=== PATIENT | male | born 1975 | race Caucasian/White ===

== ENCOUNTER 2019-07-22 19:12 | Emergency (ER) | payer BC, OTHER ==
--- NOTE | 2019-07-22 19:24 | EDM.PDOC ---
ED HPI GENERAL MEDICAL PROBLEM - General Chief Complaint: Allergic Reaction Stated Complaint: anaphylactic reaction Time Seen by Provider: 07/22/19 19:19 Source of Information: Reports: Patient History Limitations: Reports: No Limitations - History of Present Illness INITIAL COMMENTS - FREE TEXT/NARRATIVE: Patient came to ER with suspected anaphylaxis that started around an hour prior to presentation. He recalls forehead itching first. Later some hives. Then some throat tightness. No tongue swelling. No eye swelling. No history of allergic reaction in past. No other acute changes reported. Notes that he ate some shrimp and crayfish around 3pm. Says he has only had a few shrimp his entire life and rarely is exposed to them. Also notes that he had a handful of peanuts but says he eats those regularly and without incident. No other new/acute exposures identified by patient. - Related Data Allergies Allergy/AdvReac Type Severity Reaction Status Date / Time shellfish derived Allergy Airway Verified 07/22/19 19:14 Tightness Home Meds: Home Meds Ezetimibe 1 tab PO DAILY 07/22/19 [History] Fenofibrate 1 tab PO DAILY 07/22/19 [History] Multivit-Min/Folic/Vit K/Lycop [Men's Multivitamin Tablet] 1 tab PO DAILY [History] Omeprazole 40 mg PO DAILY 07/22/19 [History] Past Medical History Cardiovascular History: Reports: High Cholesterol Gastrointestinal History: Reports: GERD Endocrine/Metabolic History: Reports: Obesity/BMI 30+ Social & Family History - Family History Family Medical History: Noncontributory - Tobacco Use Smoking Status *Q: Never Smoker - Caffeine Use Caffeine Use: Reports: Soda - Alcohol Use Alcohol Use History: Yes Alcohol Use Frequency: Daily (often has a beer or two but not daily) - Recreational Drug Use Recreational Drug Use: No Drug Use in Last 12 Months: No ED ROS ALLERGIC REACTION - Review of Systems Review Of Systems: See Below Constitutional: Reports: No Symptoms HEENT: Reports: Throat Swelling (mild). Denies: Rhinitis, Sinus Problem, Throat Pain, Vision Change Respiratory: Reports: Other (some chest tightness/mild wheezing) Cardiovascular: Reports: No Symptoms GI/Abdominal: Reports: No Symptoms : Reports: No Symptoms Musculoskeletal: Reports: No Symptoms Skin: Reports: Urticaria Neurological: Reports: No Symptoms ED EXAM GENERAL NO PERIP PULSE - Physical Exam Exam: See Below Exam Limited By: No Limitations General Appearance: Alert, WD/WN, Anxious Eye Exam: Bilateral Eye: EOMI, PERRL Ears: Normal External Exam, Normal Canal, Hearing Grossly Normal Nose: No: Nasal Deformity, Nasal Swelling, Nasal Drainage, Clear Rhinorrhea Throat/Mouth: Normal Lips, Normal Oropharynx, Normal Voice, No Airway Compromise Head: Atraumatic, Normocephalic Neck: Supple, Non-Tender, Full Range of Motion Respiratory/Chest: No Accessory Muscle Use, Wheezing (mild), Other (initially mild retractions noted that improved rapidly after Epi given). No: Respiratory Distress, Crackles, Rales, Rhonchi Cardiovascular: Regular Rate, Rhythm, No Murmur GI/Abdominal: Normal Bowel Sounds, Soft, Non-Tender, No Distention (Male) Exam: Deferred Rectal (Males) Exam: Deferred Back Exam: Normal Inspection Extremities: Normal Inspection, Normal Capillary Refill Neurological: Alert, Oriented, CN II-XII Intact, Normal Cognition, Normal Gait, No Motor/Sensory Deficits Psychiatric: Normal Affect, Normal Mood Skin Exam: Warm, Dry, Other (urticaria trunk/neck/legs) Course - Vital Signs Last Recorded V/S: Last Vital Signs Temp 36.6 C 07/22/19 20:05 Pulse 93 07/22/19 20:05 Resp 18 07/22/19 20:05 BP 115/67 07/22/19 20:05 Pulse Ox 100 07/22/19 20:05 - Orders/Labs/Meds Orders: Active Orders 24 hr Category Date Time Status Sodium Chloride 0.9% [Saline Flush] Med 07/22/19 19:29 Active 10 ml FLUSH ASDIRECTED PRN Saline Lock Insert [OM.PC] Stat Oth 07/22/19 19:29 Ordered Medication Orders Sodium Chloride (Saline Flush) 10 ml FLUSH ASDIRECTED PRN PRN Reason: Keep Vein Open Last Admin: 07/22/19 19:43 Dose: 10 ml Admin: 07/22/19 19:42 Dose: 10 ml Meds: Medications Generic Name Dose Route Start Last Admin Trade Name Freq PRN Reason Stop Dose Admin Sodium Chloride 10 ml 07/22/19 19:29 07/22/19 19:43 Saline Flush FLUSH 10 ml ASDIRECTED PRN Administration Keep Vein Open Discontinued Medications Generic Name Dose Route Start Last Admin Trade Name Cory PRN Reason Stop Dose Admin Diphenhydramine HCl 50 mg 07/22/19 19:29 07/22/19 19:42 Benadryl IVPUSH 07/22/19 19:30 50 mg ONETIME ONE Administration Epinephrine HCl 0.3 mg 07/22/19 19:29 07/22/19 19:12 Adrenalin IM 07/22/19 19:30 0.3 mg ONETIME ONE Administration Methylprednisolone Sodium Succinate 125 mg 07/22/19 19:28 07/22/19 19:40 Solu-Medrol IVPUSH 07/22/19 19:29 125 mg ONETIME ONE Administration - Re-Assessments/Exams Free Text/Narrative Re-Assessment/Exam: 07/22/19 19:32 Patient received IM Epi shortly after arrival. IV placed and was given SoluMedrol 125mg and Benadryl 50mg. Observed. Noted improvement in throat/ breathing within 10 min. Itching from hives stopped within 15 min. Hives improving. Vital signs improved/stable. Patient feels much better. Patient will be observed a full hour from time of medication administration. Plan will be to discharge patient at 2000 if he continues to feel improved. Extensive precautions reviewed with patient. Recommend carrying Benadryl in vehicle for PRN future use. He should discuss if carrying an EpiPen would be helpful with his primary provider. He was also warned that something else could have triggered the reaction and should be open other possible trigger and be vigilant. Avoidance of shellfish in future prudent. Warned of potential IV contrast cross reaction in future if he does react to shellfish. Departure - Departure Time of Disposition: 20:10 Disposition: Home, Self-Care 01 Condition: Good Clinical Impression: Anaphylactic reaction Qualifiers: Encounter type: initial encounter Qualified Code(s): T78.2XXA - Anaphylactic shock, unspecified, initial encounter - Discharge Information *PRESCRIPTION DRUG MONITORING PROGRAM REVIEWED*: Not Applicable *COPY OF PRESCRIPTION DRUG MONITORING REPORT IN PATIENT PABLO: Not Applicable Instructions: Anaphylactic Reaction, Adult Forms: ED Department Discharge Additional Instructions: Continue taking 2 tabs of Benadryl every 6 hours. That would be 1am, tomorrow at 7am, and tomorrow at 1pm. If rash has resolved by then you can discontinue the Benadryl. Watch for any recurrence of symptoms as we discussed. If rash or tightness of throat/lungs returns we need to see you again. Call us if you have any questions. If this is due to shellfish, just know that if you need to have IV contrast down the road they will ask you extra questions about your allergy/make them aware that you had this reaction. Sepsis Event Note - Focused Exam Vital Signs: Vital Signs Temp Pulse Resp BP Pulse Ox 07/22/19 20:05 36.6 C 93 18 115/67 100 07/22/19 19:45 94 18 116/74 99 07/22/19 19:30 94 20 108/69 99 07/22/19 19:20 99 22 H 114/80 96 07/22/19 19:12 36.2 C 98 26 H 113/82 95 Date Exam was Performed: 07/22/19 Time Exam was Performed: 21:07 - My Orders Last 24 Hours: My Active Orders 07/22/19 19:29 Sodium Chloride 0.9% [Saline Flush] 10 ml FLUSH ASDIRECTED PRN Saline Lock Insert [OM.PC] Stat - Assessment/Plan Last 24 Hours: My Active Orders 07/22/19 19:29 Sodium Chloride 0.9% [Saline Flush] 10 ml FLUSH ASDIRECTED PRN Saline Lock Insert [OM.PC] Stat
[2019-07-22] MEDS ORDERED: methylPREDNISolone Sodium Succinate 125 MG/2 ML SDV IVPUSH ONE (19:28)
[2019-07-22] MEDS ORDERED: EPINEPHrine 1 MG/1 ML Amp IM ONE (19:29)
[2019-07-22] MEDS ORDERED: diphenhydrAMINE 50 MG/ML SDV IVPUSH ONE (19:29)
[2019-07-22] MEDS: Sodium Chloride 0.9% 10 ML Syringe FLUSH PRN ×2 (19:42→19:43)
== END 2019-07-22 20:07 | disposition home or self-care (01) ==
LOC: LL.ED 19:12
DX: T78.02XA Anaphylactic reaction due to shellfish (crustaceans), initial encounter (principal); E78.00 Pure hypercholesterolemia, unspecified; E66.9 Obesity, unspecified; Z91.013 Allergy to seafood
CPT/HCPCS: 96372; 96374; 96375; 99283; J0171; J1200; J2930

== ENCOUNTER 2022-11-04 23:19 | Emergency (ER) | payer BC, OTHER | END 2022-11-05 00:15 | disposition home or self-care (01) | LOC: LL.ED 23:19 | DX: M70.42 Prepatellar bursitis, left knee (principal); K21.9 Gastro-esophageal reflux disease without esophagitis; E66.9 Obesity, unspecified; E78.00 Pure hypercholesterolemia, unspecified; Z91.013 Allergy to seafood | CPT/HCPCS: 99283 ==

== ENCOUNTER 2024-02-22 02:26 | Emergency (ER) | payer BC | END 2024-02-22 03:25 | disposition home or self-care (01) | LOC: LL.ED 02:26 | DX: S02.2XXA Fracture of nasal bones, initial encounter for closed fracture (principal); F10.120 Alcohol abuse with intoxication, uncomplicated; K21.9 Gastro-esophageal reflux disease without esophagitis; E66.9 Obesity, unspecified; Z91.013 Allergy to seafood; Z79.899 Other long term (current) drug therapy; Y90.9 Presence of alcohol in blood, level not specified; Y04.0XXA Assault by unarmed brawl or fight, initial encounter | CPT/HCPCS: 70160; 99284 ==